=== PATIENT | male | born 1995 | race Hispanic/Latino ===

== ENCOUNTER 2019-11-15 19:34 | Emergency (ER) | payer SELFPAY ==
--- OUTSIDE RECORDS SUMMARY | 2019-11-15 19:47 | XMS REPORT | Continuity of Care Document ---
:1995 Author Organization [facility] t Address [address] [place] [address] Care Team Providers Name Role Phone Paras Greer MD Attending Clinician Problems This patient has no known problems. Allergies, Adverse Reactions, Alerts This patient has no known allergies or adverse reactions. Medications This patient has no known medications. Procedures This patient has no known procedures. Encounters Start End Encounter Admission Attending Care Care Encounter Source Date/Time Date/Time Type Type Clinicians Facility Department ID 2019-07-11 2019-07-11 Kwan Snider [facility] [id number] 00:00:00 00:00:00 Paras [place] [id number] [id number] [phone] 0[address] Building Results This patient has no known results.
[2019-11-15 21:29] LABS: Absolute Lymphocytes (CBC) 1.7 K/uL (0.7-4.9); Basophils % 0.6 % (0-1.3); Hematocrit 44.6 % (39.6-49.0); Lymphocytes % 12.7 % (15.3-44.8); MPV 10.7 fL (7.6-11.3); RBC Red Blood Cell Count 4.97 M/uL (4.33-5.43)
[2019-11-15 21:30] LABS: Protime INR 1.04
[2019-11-15 21:46] LABS: ALT/SGPT 58 U/L (12-78); Albumin 4.2 g/dL (3.4-5.0); Alkaline Phosphatase 105 U/L (45-117); BUN Blood Urea Nitrogen 13 mg/dL (7-18); Bicarbonate 24 mmol/L (21-32); Bilirubin Direct 0.1 mg/dL (0-0.2); Bilirubin Total 1.2 mg/dL (0.2-1.0); Glucose Level 89 mg/dL (74-106); Protein, Total 8.4 g/dL (6.4-8.2); Sodium Level 137 mmol/L (136-145); Troponin (Emerg Dept Use Only) < 0.02 ng/mL (0.0-0.045)
[2019-11-15 21:47] LABS: AST/SGOT 53 U/L (15-37); Magnesium 1.6 mg/dL (1.8-2.4); Potassium 4.1 mmol/L (3.5-5.1)
[2019-11-15] MEDS ORDERED: MAGNESIUM SULFATE 1 gm IVPB 1 GM/100 ML BAG IV ONE (22:09)
--- NOTE | 2019-11-15 22:09 | RAD REPORT ---
EXAM DESCRIPTION: Ian Single View11/15/2019 9:13 pm CLINICAL HISTORY: Chest pain COMPARISON: none FINDINGS: The lungs appear clear of acute infiltrate. The heart is normal size IMPRESSION: No acute abnormalities displayed
--- NOTE | 2019-11-16 01:12 | ER ---
Nurse's Notes [facility] Name: Josse Seymour Jr Age: 23 yrs Sex: Male : 1995 Arrival Date: 11/15/2019 Time: 19:35 Bed 27 Private MD: Diagnosis: Chest pain, unspecified;Cocaine abuse Presentation: 11/14 20:00 Chief complaint: Patient states: Chest pain and L shoulder pain since yesterday. SOB ca1 with chest pain. States, " I use cocaine and since I did not have cocaine yesterday, my pain just got worse" . Denies fever, denies cough. Coronavirus screen: Proceed with normal triage. Patient denies a cough. Patient reports shortness of breath or difficulty breathing. Patient denies measured and/or subjective temperature greater than 100.4F prior to today's visit. Patient denies travel on a cruise ship or to a country the [facility] currently lists as an affected area. Patient denies contact with known and/or suspected case of COVID-19. Ebola Screen: Patient negative for fever greater than or equal to 101.5 degrees Fahrenheit, and additional compatible Ebola Virus Disease symptoms Patient denies exposure to infectious person. Patient denies travel to an Ebola-affected area in the 21 days before illness onset. No symptoms or risks identified at this time. Initial Sepsis Screen: Does the patient meet any 2 criteria? No. Patient's initial sepsis screen is negative. Does the patient have a suspected source of infection? No. Patient's initial sepsis screen is negative. Risk Assessment: Do you want to hurt yourself or someone else? Patient reports no desire to harm self or others. Onset of symptoms was November 15, 2019. 20:00 Method Of Arrival: Ambulatory ca1 20:00 Acuity: TITA 3 ca1 Historical: - Allergies: 20:04 No Known Allergies; ca1 - Home Meds: 20:04 None [Active]; ca1 - PMHx: 20:04 None; ca1 - PSHx: 20:04 None; ca1 - Immunization history:: Adult Immunizations not up to date. - Social history:: Smoking status: Patient reports the use of cigarette tobacco products, smokes one pack cigarettes per day. Patient uses street drugs, cocaine, Patient/guardian denies using alcohol. Screenin:07 Abuse screen: Denies threats or abuse. Nutritional screening: No deficits noted. jv1 Tuberculosis screening: No symptoms or risk factors identified. Fall Risk None identified. Assessment: 20:30 General: Appears in no apparent distress. well groomed, well developed, Behavior is jv1 calm, cooperative, appropriate for age. Pain: Complains of pain in chest Pain radiates to left shoulder Pain currently is 6 out of 10 on a pain scale. Quality of pain is described as sharp. Neuro: Level of Consciousness is awake, alert, obeys commands, Oriented to person, place, time, situation, Natural History Collections Curator are equal bilaterally Moves all extremities. Cardiovascular: Reports chest pain, Heart tones S1 S2 present Capillary refill < 3 seconds Pulses are all present. Cardiovascular: Rhythm is regular. Respiratory: Airway is patent Respiratory effort is even, unlabored, Respiratory pattern is regular, symmetrical. GI: No signs and/or symptoms were reported involving the gastrointestinal system. : No signs and/or symptoms were reported regarding the genitourinary system. EENT: No signs and/or symptoms were reported regarding the EENT system. Derm: No signs and/or symptoms reported regarding the dermatologic system. 20:30 Pain: Pain began gradually, 1 day ago. jv1 21:30 Reassessment: No changes from previously documented assessment. Patient and/or family jv1 updated on plan of care and expected duration. Pain level reassessed. Patient is alert, oriented x 3, equal unlabored respirations, skin warm/dry/pink. 22:30 Reassessment: Patient and/or family updated on plan of care and expected duration. Pain jv1 level reassessed. Patient is alert, oriented x 3, equal unlabored respirations, skin warm/dry/pink. Patient states feeling better. Patient states symptoms have improved. 23:30 Reassessment: Patient and/or family updated on plan of care and expected duration. Pain jv1 level reassessed. Patient is alert, oriented x 3, equal unlabored respirations, skin warm/dry/pink. Patient denies pain at this time. Patient states feeling better. Patient states symptoms have improved. Pain: Denies pain. 11/15 00:30 Reassessment: No changes from previously documented assessment. Patient and/or family jv1 updated on plan of care and expected duration. Pain level reassessed. Patient is alert, oriented x 3, equal unlabored respirations, skin warm/dry/pink. Patient denies pain at this time. Patient states feeling better. Patient states symptoms have improved. 01:19 Reassessment: Patient and/or family updated on plan of care and expected duration. Pain jv1 level reassessed. Patient is alert, oriented x 3, equal unlabored respirations, skin warm/dry/pink. Provide in the room with pt Patient denies pain at this time. Patient states feeling better. Patient states symptoms have improved. 01:31 Reassessment: pt stable, troponins were negative, no c/o chest pain. jv1 Vital Signs: 11/14 20:00 BP 143 / 76; Pulse 100; Resp 16 S; Temp 97.9(TE); Pulse Ox 98% on R/A; Weight 111.13 kg ca1 (R); Height 6 ft. 1 in. (185.42 cm) (R); Pain 7/10; 21:00 BP 140 / 80; Pulse 98; Resp 18; Temp 98.2; Pulse Ox 100% ; jv1 22:00 BP 135 / 70; Pulse 91; Resp 18; Temp 97.8; Pulse Ox 100% ; Pain 4/10; jv1 23:00 BP 125 / 70; Pulse 85; Resp 18; Temp 98.1; Pulse Ox 100% ; Pain 0/10; jv1 11/15 00:00 BP 132 / 62; Pulse 84; Resp 18; Temp 98.1; Pulse Ox 99% on R/A; Pain 0/10; jv1 01:20 BP 127 / 64; Pulse 80; Resp 18; Temp 98.1; Pulse Ox 99% ; Pain 0/10; jv1 11/14 20:00 Body Mass Index 32.32 (111.13 kg, 185.42 cm) ca1 ED Course: 11/14 19:35 Patient arrived in ED. ds1 20:03 Triage completed. ca1 20:04 Arm band placed on right wrist. ca1 20:30 Inserted saline lock: 22 gauge in right antecubital area, using aseptic technique. jv1 Patient maintains SpO2 saturation greater than 95% on room air. 20:50 Kalia Menchaca PA is PHCP. cp 20:50 Mendez Galloway MD is Attending Physician. cp 21:14 XRAY Chest (1 view) In Process Unspecified. EDMS 23:07 Patient has correct armband on for positive identification. Bed in low position. Call jv1 light in reach. Side rails up X 1. security monitor on. Pulse ox on. NIBP on. 11/15 01:30 No provider procedures requiring assistance completed. IV discontinued, intact, jv1 bleeding controlled, No redness/swelling at site. Pressure dressing applied. Administered Medications: 11/14 22:20 Drug: Magnesium Sulfate 1 grams Route: IVPB; Infused Over: 1 hrs; Site: right jv1 antecubital; 23:20 Follow up: Response: No adverse reaction; IV Status: Completed infusion jv1 Outcome: 11/15 01:12 Discharge ordered by . cherelle 01:30 Discharged to home ambulatory. jv1 01:30 Condition: stable 01:30 Discharge instructions given to patient, Instructed on discharge instructions, follow up and referral plans. Demonstrated understanding of instructions, follow-up care, Prescriptions given X no prescriptions 01:31 Patient left the ED. jv1 Signatures: Dispatcher [employer] [facility] Kenia Molina ds1 Kalia Menchaca PA PA cp Vicente, Joyce, RN RN jv1 Kerrie Madden RN RN ca1
--- NOTE | 2019-11-16 01:12 | EDPHYS ---
Physician Documentation [facility] Name: Josse Seymour Jr Age: 23 yrs Sex: Male : 1995 Arrival Date: 11/15/2019 Time: 19:35 Bed 27 Private MD: ED Physician Mendez Galloway HPI: 11/14 21:00 This 23 yrs old Male presents to ER via Ambulatory with complaints of Chest cp Pain, L Arm Pain. 21:00 The patient or guardian reports chest pain that is located primarily in the anterior cp chest wall. 21:00 The pain radiates to the left shoulder. cp 21:00 Duration: The patient or guardian reports multiple episodes, that have now resolved. cp Severity of pain: in the emergency department the pain has resolved. Patient reports using cocaine with last use this morning at 0800. Historical: - Allergies: 20:04 No Known Allergies; ca1 - Home Meds: 20:04 None [Active]; ca1 - PMHx: 20:04 None; ca1 - PSHx: 20:04 None; ca1 - Immunization history:: Adult Immunizations not up to date. - Social history:: Smoking status: Patient reports the use of cigarette tobacco products, smokes one pack cigarettes per day. Patient uses street drugs, cocaine, Patient/guardian denies using alcohol. ROS: 21:05 Cardiovascular: Positive for chest pain, Negative for edema, palpitations. cp 21:05 Eyes: Negative for injury, pain, redness, and discharge. cp 21:05 Constitutional: Negative for body aches, chills, fever, poor PO intake. 21:05 ENT: Negative for ear pain, sore throat, difficulty swallowing, difficulty handling secretions. 21:05 Respiratory: Negative for cough, shortness of breath, wheezing. 21:05 Abdomen/GI: Negative for abdominal pain, nausea, vomiting, and diarrhea. 21:05 Back: Negative for radiated pain. 21:05 Neuro: Negative for altered mental status, dizziness, headache, syncope, weakness. Exam: 20:20 ECG was reviewed by the Attending Physician. cp 21:10 Constitutional: The patient appears in no acute distress, alert, awake, comfortable, cp non-diaphoretic, non-toxic, well developed, well nourished. 21:10 Head/Face: Normocephalic, atraumatic. cp 21:10 Eyes: Periorbital structures: appear normal, Conjunctiva: normal, no exudate, no injection, Sclera: no appreciated abnormality, Lids and lashes: appear normal, bilaterally. 21:10 ENT: External ear(s): are unremarkable, Nose: is normal, Mouth: is normal, Posterior pharynx: is normal, airway is patent. 21:10 Neck: ROM/movement: is normal, is supple, without pain, no range of motions limitations. 21:10 Chest/axilla: Inspection: normal, Palpation: is normal, no crepitus, no tenderness. 21:10 Cardiovascular: Rate: normal, Rhythm: regular, Heart sounds: murmur, not appreciated, Edema: is not appreciated, JVD: is not appreciated. 21:10 Respiratory: the patient does not display signs of respiratory distress, Respirations: normal, no use of accessory muscles, no retractions, labored breathing, is not present, Breath sounds: are clear throughout, no decreased breath sounds. 21:10 Abdomen/GI: Inspection: abdomen appears normal, Palpation: abdomen is soft and non-tender, in all quadrants. 21:10 Back: pain, is absent, ROM is normal. 21:10 Neuro: Orientation: to person, place \T\ time. Mentation: is normal, Motor: moves all fours, strength is normal. 11/15 00:50 ECG was reviewed by the Attending Physician. cp Vital Signs: 11/14 20:00 BP 143 / 76; Pulse 100; Resp 16 S; Temp 97.9(TE); Pulse Ox 98% on R/A; Weight 111.13 kg ca1 (R); Height 6 ft. 1 in. (185.42 cm) (R); Pain 7/10; 21:00 BP 140 / 80; Pulse 98; Resp 18; Temp 98.2; Pulse Ox 100% ; jv1 22:00 BP 135 / 70; Pulse 91; Resp 18; Temp 97.8; Pulse Ox 100% ; Pain 4/10; jv1 23:00 BP 125 / 70; Pulse 85; Resp 18; Temp 98.1; Pulse Ox 100% ; Pain 0/10; jv1 11/15 00:00 BP 132 / 62; Pulse 84; Resp 18; Temp 98.1; Pulse Ox 99% on R/A; Pain 0/10; jv1 01:20 BP 127 / 64; Pulse 80; Resp 18; Temp 98.1; Pulse Ox 99% ; Pain 0/10; jv1 11/14 20:00 Body Mass Index 32.32 (111.13 kg, 185.42 cm) ca1 MDM: 11/14 20:55 Patient medically screened. 11/15 01:11 Data reviewed: vital signs, nurses notes, lab test result(s), EKG, radiologic studies, cp plain films. 01:11 Differential diagnosis: abnormal EKG, acute myocardial infarction, acute pericarditis, cp chest wall pain, cholecystitis, Cholelithiasis costochondritis, myocarditis, pleurisy, pneumonia, pneumothorax, pulmonary embolus, unstable angina. Test interpretation: by ED physician or midlevel provider: ECG. Counseling: I had a detailed discussion with the patient and/or guardian regarding: the historical points, exam findings, and any diagnostic results supporting the discharge/admit diagnosis, lab results, radiology results, the need for outpatient follow up, a family practitioner, to return to the emergency department if symptoms worsen or persist or if there are any questions or concerns that arise at home. 11/14 20:55 Order name: Basic Metabolic Panel; Complete Time: 21:50 11/14 23:24 Interpretation: Normal except: GFR 86. 11/14 20:55 Order name: CBC with Diff; Complete Time: 21:50 11/14 20:55 Order name: LFT's; Complete Time: 21:50 11/14 20:55 Order name: Magnesium; Complete Time: 21:50 11/14 20:55 Order name: PT-INR; Complete Time: 21:50 11/14 20:55 Order name: Troponin (emerg Dept Use Only); Complete Time: 21:51 11/14 20:06 Order name: EKG; Complete Time: 20:06 [facility] 11/14 20:06 Order name: EKG - Nurse/Tech; Complete Time: 21:06 [facility] 11/14 20:55 Order name: XRAY Chest (1 view); Complete Time: 23:06 11/14 23:06 Interpretation: Report review. 11/14 20:55 Order name: Cardiac monitoring; Complete Time: 21:06 11/14 20:55 Order name: IV Saline Lock; Complete Time: 21:22 cp 11/15 00:11 Order name: Troponin I cp 11/15 00:11 Order name: EKG; Complete Time: 00:12 cp 11/14 20:55 Order name: Labs collected and sent; Complete Time: 21:22 cp 11/14 20:55 Order name: O2 Per Protocol; Complete Time: 21:06 cp 11/14 20:55 Order name: O2 Sat Monitoring; Complete Time: 21:06 cp 11/15 00:11 Order name: EKG - Nurse/Tech; Complete Time: 01:32 cp EC/08 20:20 Rate is 100 beats/min. Rhythm is regular. DE interval is normal. QRS interval is cp prolonged at 112 msec. QT interval is normal. T waves are Inverted in lead III. Interpreted by me. Reviewed by me. 11/15 00:50 Rate is 84 beats/min. Rhythm is regular. DE interval is normal. QRS interval is cp prolonged at 110 msec. QT interval is normal. T waves are Inverted in lead III. Interpreted by me. Reviewed by me. Administered Medications: 11/14 22:20 Drug: Magnesium Sulfate 1 grams Route: IVPB; Infused Over: 1 hrs; Site: right jv1 antecubital; 23:20 Follow up: Response: No adverse reaction; IV Status: Completed infusion jv1 Disposition: 11/15 05:44 Co-signature as Attending Physician, Mendez Galloway MD. [email or web address] Disposition: 11/16/19 01:12 Discharged to Home. Impression: Chest pain, unspecified, Cocaine abuse. - Condition is Stable. - Discharge Instructions: Nonspecific Chest Pain, Stimulant Use Disorder-Cocaine, Aspirin and Your Heart. - Medication Reconciliation Form, Thank You Letter, Antibiotic Education, Prescription Opioid Use form. - Follow up: Private Physician; When: 1 - 2 days; Reason: Recheck today's complaints. - Problem is new. - Symptoms have improved. Signatures: Dispatcher [employer] EDMS Kalia Menchaca PA PA cp Vicente, Joyce, RN RN jv1 Acob, Cheryl, RN RN ca1 Holmes, Maurice, MD MD mh7 Corrections: (The following items were deleted from the chart) 01:31 01:12 11/16/2019 01:12 Discharged to Home. Impression: Chest pain, unspecified; Cocaine jv1 abuse. Condition is Stable. Forms are Medication Reconciliation Form, Thank You Letter, Antibiotic Education, Prescription Opioid Use. Follow up: Private Physician; When: 1 - 2 days; Reason: Recheck today's complaints. Problem is new. Symptoms have improved. cp
[2019-11-16 01:45] VITALS: TEMP 98.1
[2019-11-16 01:47] VITALS: O2SAT 99
[2019-11-16 01:48] VITALS: BP 127/64
--- NOTE | 2019-11-16 06:34 | EKG ---
Test Date: 2019-11-16 Test Time: 00:44:53 Assembler Gold Frame: LULY MEASUREMENT RESULTS: Intervals: Rate: 84 WI: 140 QRSD: 110 QT: 366 QTc: 432 [place]: P: 42 WI: 140 QRS: 90 T: 18 INTERPRETIVE STATEMENTS: Normal sinus rhythm Rightward axis Borderline ECG Compared to ECG 11/15/2019 20:12:49 No significant changes Electronically Signed On 11-16-19 06:34:20 CDT by Devon Iraheta
--- NOTE | 2019-11-16 06:35 | EKG ---
Test Date: 2019-11-15 Test Time: 20:12:49 Vending Manager: SHERRON MEASUREMENT RESULTS: Intervals: Rate: 100 TX: 122 QRSD: 112 QT: 342 QTc: 441 [place]: P: 25 TX: 122 QRS: 98 T: 5 INTERPRETIVE STATEMENTS: Normal sinus rhythm Rightward axis Borderline ECG Compared to ECG 10/22/2004 09:15:00 Right-axis deviation now present Electronically Signed On 11-16-19 06:34:28 CDT by Devon Iraheta
== END 2019-11-16 01:31 | disposition home or self-care (01) ==
LOC: ER 19:34
DX: F14.10 Cocaine abuse, uncomplicated (principal); F17.210 Nicotine dependence, cigarettes, uncomplicated
CPT/HCPCS: 36415; 71045; 80048; 80076; 83735; 84484; 85025; 85610; 93005; 96365; 99285; J3475

== ENCOUNTER 2020-04-26 06:06 | Emergency (ER) | payer SELFPAY ==
--- OUTSIDE RECORDS SUMMARY | 2020-04-26 06:08 | XMS REPORT | Continuity of Care Document ---
:1995 Author Organization [facility] t Address [address] [place] [address] [address] [place] [address] Care Team Providers Name Role Phone Paras [...] Facility Department ID 2019-07-11 2019-07-11 Kwan Snider [facility] [id number] 00:00:00 00:00:00 Paras [place] [id number] Bev [id number] Emma [phone] nal 044 [facility] Results This patient has no known results.
[2020-04-26 06:30] LABS: Absolute Lymphocytes (CBC) 2.7 K/uL (0.7-4.9); Lymphocytes % 43.5 % (15.3-44.8); MPV 9.6 fL (7.6-11.3); RBC Red Blood Cell Count 4.85 M/uL (4.33-5.43)
[2020-04-26] MEDS ORDERED: ASPIRIN 81 MG CHEWABLE TABLET ONE (06:46)
[2020-04-26 06:56] LABS: ALT/SGPT 40 U/L (12-78); AST/SGOT 28 U/L (15-37); Albumin 3.7 g/dL (3.4-5.0); Alkaline Phosphatase 110 U/L (45-117); BUN Blood Urea Nitrogen 17 mg/dL (7-18); Bicarbonate 27 mmol/L (21-32); Bilirubin Direct 0.1 mg/dL (0-0.2); Bilirubin Total 0.9 mg/dL (0.2-1.0); Glucose Level 98 mg/dL (74-106); Lipase 152 U/L (73-393); Magnesium 2.2 mg/dL (1.8-2.4); Potassium 3.8 mmol/L (3.5-5.1); Sodium Level 142 mmol/L (136-145); Troponin (Emerg Dept Use Only) < 0.02 ng/mL (0.0-0.045)
--- NOTE | 2020-04-26 07:18 | RAD REPORT ---
EXAM DESCRIPTION: RAD - Chest Single View - 04/26/2020 6:35 am CLINICAL HISTORY: CHEST PAIN COMPARISON: Portable November 14 TECHNIQUE: AP portable chest image was obtained 04/26/2020 6:35 am . FINDINGS: Lungs are clear. Heart and vasculature are normal. No measurable pleural effusion and no p neumothorax. No acute bony abnormality seen. No acute aortic findings suspected. IMPRESSION: No acute cardiopulmonary process.
[2020-04-26 08:15] LABS: Barbiturates NEGATIVE (NEGATIVE); Benzodiazepines NEGATIVE (NEGATIVE); Cocaine NEGATIVE (NEGATIVE); METHAMPHETAM NEGATIVE (NEGATIVE); Methadone NEGATIVE (NEGATIVE); Opiates NEGATIVE (NEGATIVE); Phencyclidine NEGATIVE (NEGATIVE); THC Cannibis NEGATIVE (NEGATIVE)
[2020-04-26 08:18] LABS: Urine Blood NEGATIVE (NEG); Urine Glucose NEGATIVE (NEG); Urine Protein NEGATIVE (NEG); Urine Specific Gravity >1.030 (1.005-1.030)
[2020-04-26] MEDS ORDERED: KETOROLAC 30 MG/ML INJ ONE (09:07)
--- NOTE | 2020-04-26 10:53 | ER ---
Nurse's Notes [facility] Name: Josse Seymour Jr Age: 24 yrs Sex: Male : 1995 Arrival Date: 04/26/2020 Time: 06:08 Bed 5 Private MD: Diagnosis: Chest pain, unspecified Presentation: 04/26 06:19 Chief complaint: Patient states: chest pain at around 0500. getting ready to work. rv sudden chest pressure on the left ant chest wall, radiating to left shoulder and back. with SOB. Coronavirus screen: Client denies travel out of the [place] in the last 14 days. Ebola Screen: No symptoms or risks identified at this time. Initial Sepsis Screen: Does the patient meet any 2 criteria? No. Patient's initial sepsis screen is negative. Does the patient have a suspected source of infection? No. Patient's initial sepsis screen is negative. Risk Assessment: Do you want to hurt yourself or someone else? Patient reports no desire to harm self or others. Onset of symptoms was April 26, 2020 at 05:00. 06:19 Method Of Arrival: Ambulatory 06:19 Acuity: TITA 3 rv Triage Assessment: 06:21 General: Appears comfortable, Behavior is calm, cooperative. Pain: Complains of pain in rv anterior aspect of left upper chest Pain radiates to back and anterior aspect of left shoulder Pain currently is 6 out of 10 on a pain scale. at worst was 8 out of 10 on a pain scale. Quality of pain is described as pressure, Pain began suddenly. EENT: No signs and/or symptoms were reported regarding the EENT system. Neuro: Level of Consciousness is awake, alert, obeys commands, Oriented to person, place, time, situation. Cardiovascular: Patient's skin is warm and dry. Rhythm is sinus rhythm. Respiratory: Airway is patent Respiratory effort is even, unlabored, Breath sounds are clear bilaterally. Derm: Skin is intact. Historical: - Allergies: 06:21 No Known Allergies; rv - Home Meds: 06:21 None [Active]; rv - PMHx: 06:21 Asthma; rv - PSHx: 06:21 None; rv - Immunization history:: Adult Immunizations up to date. - Social history:: Smoking status: Patient reports the use of cigarette tobacco products, denies chronic smoking, but will smoke occasionally. Screenin:22 Abuse screen: Denies threats or abuse. Denies injuries from another. Nutritional rv screening: No deficits noted. Tuberculosis screening: No symptoms or risk factors identified. Fall Risk None identified. Assessment: 06:30 General: Appears in no apparent distress. Behavior is calm, cooperative, appropriate wh for age. Pain: Complains of pain in chest Pain radiates to anterior aspect of left shoulder Pain currently is 7 out of 10 on a pain scale. Quality of pain is described as dull, Pain began suddenly. Neuro: Level of Consciousness is awake, alert, obeys commands, Oriented to person, place, time, situation, Appropriate for age. Cardiovascular: Reports chest pain, Heart tones S1 S2 Capillary refill < 3 seconds Rhythm is sinus rhythm. Respiratory: Airway is patent Respiratory effort is even, unlabored, Respiratory pattern is regular, symmetrical, Breath sounds are clear bilaterally. GI: Abdomen is flat, non-distended. : No signs and/or symptoms were reported regarding the genitourinary system. EENT: No signs and/or symptoms were reported regarding the EENT system. Derm: Skin is intact, is healthy with good turgor, Skin is pink, warm \T\ dry. normal. Musculoskeletal: Circulation, motion, and sensation intact. 07:51 Reassessment: Patient appears in no apparent distress at this time. Patient and/or jl7 family updated on plan of care and expected duration. Pain level reassessed. Patient is alert, oriented x 3, equal unlabored respirations, skin warm/dry/pink. Pain: Complains of pain in left scapular area Pain does not radiate. Pain currently is 3 out of 10 on a pain scale. 08:57 Reassessment: VO for 15 mg Toradol IVP, medicated as ordered. jl7 Vital Signs: 06:19 BP 135 / 88; Pulse 87; Resp 18; Temp 98.4; Pulse Ox 97% ; Weight 117.93 kg; Height 6 rv ft. 1 in. (185.42 cm); Pain 7/10; 06:41 BP 125 / 61; Pulse 82; Resp 18; Pulse Ox 97% on R/A; wh 07:51 BP 105 / 59; Pulse 78; Resp 17; Pulse Ox 97% ; Pain 3/10; jl7 08:56 BP 126 / 65; Pulse 75; Resp 17; Pulse Ox 97% on R/A; tw2 10:02 BP 120 / 60; Pulse 80; Resp 19; Pulse Ox 99% on R/A; tw2 06:19 Body Mass Index 34.30 (117.93 kg, 185.42 cm) rv ED Course: 06:08 Patient arrived in ED. cl3 06:14 Jogre Carpenter MD is Attending Physician. kdr 06:20 Triage completed. rv 06:22 Arm band placed on right wrist. Patient placed in the treatment room, on a stretcher, rv Patient notified of wait time. 06:22 Patient has correct armband on for positive identification. Bed in low position. Call rv light in reach. Side rails up X 1. bus driver/monitor on. Pulse ox on. NIBP on. 06:23 Patient maintains SpO2 saturation greater than 95% on room air. rv 06:30 Inserted saline lock: 20 gauge in right antecubital area, using aseptic technique. wh Blood collected. 06:30 Initial lab(s) drawn, by ED staff, sent to lab. jl7 06:36 XRAY Chest (1 view) In Process Unspecified. EDMS 06:39 Daren Alves is Primary Nurse. wh 07:53 Urine collected: clean catch specimen, clear. jl7 07:54 Primary Nurse role handed off by Daren Alves jl7 07:54 Jovanny Soto, DENISE is Primary Nurse. jl7 10:36 Attending Physician role handed off by Jorge Carpenter MD rn 10:36 Anand Patel MD is Attending Physician. rn 11:01 No provider procedures requiring assistance completed. IV discontinued, intact, iw bleeding controlled, No redness/swelling at site. Pressure dressing applied. Administered Medications: 06:39 Drug: Aspirin Chewable Tablet 324 mg Route: PO; wh 07:41 Follow up: Response: No adverse reaction jl7 08:56 Drug: TORadol - Ketorolac 15 mg Route: IVP; Site: right antecubital; jl7 11:02 Follow up: Response: No adverse reaction iw Outcome: 10:52 Discharge ordered by . rn 11:01 Discharged to home ambulatory. iw 11:01 Condition: good 11:01 Discharge instructions given to patient, Instructed on discharge instructions, follow up and referral plans. Demonstrated understanding of instructions, follow-up care. 11:02 Patient left the ED. iw Signatures: Dispatcher [employer] EDMS Jorge Carpenter MD MD kdr Williams, Irene RN RN Anand Fish MD MD rn Wise, Tara, RN RN tw2 Jovanny Soto RN RN jl7 Daren Alves Ronaldo, RN RN Madison Gonsalez cl3
--- NOTE | 2020-04-26 10:53 | EDPHYS ---
Physician Documentation [facility] Name: Josse Seymour Jr Age: 24 yrs Sex: Male : 1995 Arrival Date: 04/26/2020 Time: 06:08 Bed 5 Private MD: ED Physician Anand Patel HPI: 04/26 06:53 This 24 yrs old Male presents to ER via Ambulatory with complaints of Chest kdr pressure. 06:53 The patient or guardian reports chest pain that is located primarily in the anterior kdr chest wall, left, chest diffusely. The pain radiates to the left shoulder. Associated signs and symptoms: Pertinent positives: shortness of breath, Pertinent negatives: diaphoresis, dizziness. The chest pain is described as a pressure. Duration: The patient or guardian reports a single episode, that is still ongoing. Modifying factors: The symptoms are alleviated by nothing. the symptoms are aggravated by cough, deep breath, movement, twisting torso. Severity of pain: At its worst the pain was moderate in the emergency department the pain has improved mildly. The patient has not experienced similar symptoms in the past. Historical: - Allergies: 06:21 No Known Allergies; rv - Home Meds: 06:21 None [Active]; rv - PMHx: 06:21 Asthma; rv - PSHx: 06:21 None; rv - Immunization history:: Adult Immunizations up to date. - Social history:: Smoking status: Patient reports the use of cigarette tobacco products, denies chronic smoking, but will smoke occasionally. ROS: 06:53 Constitutional: Negative for fever, chills, and weight loss, Eyes: Negative for injury, kdr pain, redness, and discharge, Neck: Negative for injury, pain, and swelling, Abdomen/GI: Negative for abdominal pain, nausea, vomiting, diarrhea, and constipation, Back: Negative for injury and pain, : Negative for injury, bleeding, discharge, and swelling, MS/Extremity: Negative for injury and deformity, Skin: Negative for injury, rash, and discoloration, Neuro: Negative for headache, weakness, numbness, tingling, and seizure activity. Psych: Negative for depression, anxiety, suicide ideation, homicidal ideation, and hallucinations, Allergy/Immunology: Negative for hives, rash, and allergies, Endocrine: Negative for neck swelling, polydipsia, polyuria, polyphagia, and marked weight changes, Hematologic/Lymphatic: Negative for swollen nodes, abnormal bleeding, and unusual bruising. 06:53 Cardiovascular: Positive for chest pain, with cough, with movement, Negative for edema, orthopnea, palpitations, paroxysmal nocturnal dyspnea. 06:53 Respiratory: Positive for dyspnea on exertion, After mowing a number of yards yesterday, he wsa very SOB last night. He ate a lot of food and was very full. Exam: 06:53 Constitutional: This is a well developed, well nourished patient who is awake, alert, kdr and in no acute distress. Head/Face: Normocephalic, atraumatic. Eyes: Pupils equal round and reactive to light, extra-ocular motions intact. Lids and lashes normal. Conjunctiva and sclera are non-icteric and not injected. Cornea within normal limits. Periorbital areas with no swelling, redness, or edema. Neck: Trachea midline, no thyromegaly or masses palpated, and no cervical lymphadenopathy. Supple, full range of motion without nuchal rigidity, or vertebral point tenderness. No Meningismus. Chest/axilla: Normal chest wall appearance and motion. Nontender with no deformity. No lesions are appreciated. Cardiovascular: Regular rate and rhythm with a normal S1 and S2. No gallops, murmurs, or rubs. Normal PMI, no JVD. No pulse deficits. Respiratory: Lungs have equal breath sounds bilaterally, clear to auscultation and percussion. No rales, rhonchi or wheezes noted. No increased work of breathing, no retractions or nasal flaring. Abdomen/GI: Soft, non-tender, with normal bowel sounds. No distension or tympany. No guarding or rebound. No evidence of tenderness throughout. Back: No spinal tenderness. No costovertebral tenderness. Full range of motion. Skin: Warm, dry with normal turgor. Normal color with no rashes, no lesions, and no evidence of cellulitis. MS/ Extremity: Pulses equal, no cyanosis. Neurovascular intact. Full, normal range of motion. Neuro: Awake and alert, GCS 15, oriented to person, place, time, and situation. Cranial nerves II-XII grossly intact. Motor strength 5/5 in all extremities. Sensory grossly intact. Cerebellar exam normal. Normal gait. Psych: Awake, alert, with orientation to person, place and time. Behavior, mood, and affect are within normal limits. 06:53 ECG was reviewed by the Attending Physician. kdr Vital Signs: 06:19 BP 135 / 88; Pulse 87; Resp 18; Temp 98.4; Pulse Ox 97% ; Weight 117.93 kg; Height 6 rv ft. 1 in. (185.42 cm); Pain 7/10; 06:41 BP 125 / 61; Pulse 82; Resp 18; Pulse Ox 97% on R/A; wh 07:51 BP 105 / 59; Pulse 78; Resp 17; Pulse Ox 97% ; Pain 3/10; jl7 08:56 BP 126 / 65; Pulse 75; Resp 17; Pulse Ox 97% on R/A; tw2 10:02 BP 120 / 60; Pulse 80; Resp 19; Pulse Ox 99% on R/A; tw2 06:19 Body Mass Index 34.30 (117.93 kg, 185.42 cm) rv MDM: 10:36 Patient medically screened. rn 10:51 Differential diagnosis: acute myocardial infarction, acute pericarditis, anxiety, chest rn wall pain, costochondritis, esophagitis, gastritis, gastroesophageal reflux disease (GERD), pleurisy, pneumothorax. Data reviewed: vital signs, nurses notes, lab test result(s), EKG, radiologic studies, plain films, and as a result, I will discharge patient. Counseling: I had a detailed discussion with the patient and/or guardian regarding: the historical points, exam findings, and any diagnostic results supporting the discharge/admit diagnosis, lab results, radiology results, the need for outpatient follow up, to return to the emergency department if symptoms worsen or persist or if there are any questions or concerns that arise at home. Special discussion: Based on the patient's history, exam, and Dx evaluation, there is no indication for emergent intervention or inpatient Tx. It is understood by the patient/guardian that if the Sx's persist or worsen they need to return immediately for re-evaluation. I discussed with the patient/guardian in detail that at this point there is no indication for admission to the hospital. It is understood, however, that if the symptoms persist or worsen the patient needs to return immediately for re-evaluation. ED course: Signed out to me by Dr. Carpenter, pending repeat troponin for chest pain eval, repeat trop neg, ecg without ischemia, stable vitals, will dc home with pcp f/u. . 04/26 06:14 Order name: Basic Metabolic Panel; Complete Time: 08:23 [facility] 04/26 06:14 Order name: CBC with Diff; Complete Time: 08:23 [facility] 04/26 06:14 Order name: LFT's; Complete Time: 08:23 [facility] 04/26 06:14 Order name: Magnesium; Complete Time: 08:23 [facility] 04/26 06:14 Order name: Troponin (emerg Dept Use Only); Complete Time: 08:23 [facility] 04/26 06:14 Order name: Lipase; Complete Time: 08:23 [facility] 04/26 06:14 Order name: XRAY Chest (1 view); Complete Time: 08:23 [facility] 04/26 06:14 Order name: EKG; Complete Time: 06:15 [facility] 04/26 06:14 Order name: Cardiac monitoring; Complete Time: 06:23 [facility] 04/26 06:14 Order name: UDS; Complete Time: 08:23 [facility] 04/26 07:59 Order name: Urine Dipstick--Ancillary (enter results); Complete Time: 08:23 04/26 09:33 Order name: Troponin (emerg Dept Use Only); Complete Time: 10:51 [facility] 04/26 06:14 Order name: EKG - Nurse/Tech; Complete Time: 06:31 [facility] 04/26 06:14 Order name: IV Saline Lock; Complete Time: 06:23 [facility] 04/26 06:14 Order name: Labs collected and sent; Complete Time: 06:23 [facility] 04/26 06:14 Order name: O2 Per Protocol; Complete Time: 06:23 [facility] 04/26 06:14 Order name: O2 Sat Monitoring; Complete Time: 06:23 [facility] EC:53 Rate is 83 beats/min. Rhythm is regular. Right axis deviation noted. UT interval is kdr normal. QRS interval is normal. QT interval is normal. Clinical impression: NSR w/ Non-specific ST/T Changes. Administered Medications: 06:39 Drug: Aspirin Chewable Tablet 324 mg Route: PO; 07:41 Follow up: Response: No adverse reaction [facility] 08:56 Drug: TORadol - Ketorolac 15 mg Route: IVP; Site: right antecubital; jl7 11:02 Follow up: Response: No adverse reaction iw Disposition: 04/26/20 10:52 Discharged to Home. Impression: Chest pain, unspecified. - Condition is Stable. - Discharge Instructions: Nonspecific Chest Pain. - Medication Reconciliation Form, Thank You Letter, Antibiotic Education, Prescription Opioid Use, Work release form form. - Follow up: Private Physician; When: As needed; Reason: Recheck today's complaints, Re-evaluation by your physician. - Problem is new. - Symptoms have improved. Signatures: Dispatcher [employer] EDMS Kalia Chase MD MD cha Rittger, Kevin, MD MD kdr Williams, Irene, RN RN iw Anand Patel MD MD rn Leal, Jahala RN RN jl7 Daren Alves Ronaldo, RN RN rv Corrections: (The following items were deleted from the chart) 11:02 10:52 04/26/2020 10:52 Discharged to Home. Impression: Chest pain, unspecified. iw Condition is Stable. Forms are Medication Reconciliation Form, Thank You Letter, Antibiotic Education, Prescription Opioid Use. Follow up: Private Physician; When: As needed; Reason: Recheck today's complaints, Re-evaluation by your physician. Problem is new. Symptoms have improved. rn
[2020-04-26 13:37] VITALS: TEMP 98.4
[2020-04-26 13:44] VITALS: BP 120/60; O2SAT 99
--- NOTE | 2020-04-27 06:07 | EKG ---
Test Date: 2020-04-26 Test Time: 06:28:08 Strip Roller: MEASUREMENT RESULTS: Intervals: Rate: 83 WA: 142 QRSD: 106 QT: 364 QTc: 427 [place]: P: 35 WA: 142 QRS: 94 T: 33 INTERPRETIVE STATEMENTS: Normal sinus rhythm Rightward axis Borderline ECG Compared to ECG 11/16/2019 00:44:53 No significant changes Electronically Signed On 04-27-20 06:03:17 FERMENTATION ENGINEER by Devon Iraheta
== END 2020-04-26 11:02 | disposition home or self-care (01) ==
LOC: ER 06:06
DX: R07.9 Chest pain, unspecified (principal); F17.210 Nicotine dependence, cigarettes, uncomplicated
CPT/HCPCS: 36415; 71045; 80048; 80076; 80307; 81003; 83690; 83735; 84484; 85025; 93005; 96374; 99285